=== PATIENT | female | born 1960 | race Caucasian/White ===

== ENCOUNTER 2016-12-26 17:44 | Emergency (ER) | payer MEDICAID, OTHER ==
[~2016-12-26] VITALS: Ht 162.6 cm; Wt 89.5 kg
[2016-12-26 18:09] VITALS: Ht 162.6 cm; Wt 89.5 kg
[2016-12-26] MEDS ORDERED: ALBUTEROL 0.083% (NEB) 2.5 MG/3 ML AMP NEB STA (20:49)
[2016-12-26] MEDS ORDERED: IPRATROPIUM (NEB) 0.5 MG/2.5 ML AMP NEB STA (20:49)
[2016-12-26] MEDS ORDERED: SOD CHLORIDE 0.9% 1,000 ML IV STA (20:49)
[2016-12-26] MEDS ORDERED: METHYLPREDNISOLONE 125 MG INJ IV STA (20:49)
[2016-12-26] MEDS ORDERED: DIPHENOXYLATE/ATROPINE TAB PO ONE (21:00)
[2016-12-26] MEDS ORDERED: BENZONATATE 100 MG CAP PO ONE (21:00)
[2016-12-26] MEDS ORDERED: NAPR220T30 PO (21:01)
[2016-12-26 21:32] LABS: ADD SCAN DIFF NO
[2016-12-26 21:35] LABS: BASOPHILS % 0.2 % (0.0-2.0); EOSINOPHILS # 0.1 10^3/ul (0.0-0.5); EOSINOPHILS % 2.4 % (0.0-7.0); HEMATOCRIT 41.6 % (37.0-47.0); HEMOGLOBIN 14.3 g/dl (12.0-16.0); MEAN CORPUSCULAR HEMOGLOBIN 30.8 pg (29.0-33.0); MEAN CORPUSCULAR HGB CONC 34.4 g/dl (32.0-37.0); MEAN CORPUSCULAR VOLUME 89.5 fl (82.0-101.0); MEAN PLATELET VOLUME 10.3 fl (7.4-10.4); MONOCYTE # 0.3 10^3/ul (0.3-0.9); NEUTROPHILS % 74.2 % (39.0-77.0); PLATELET COUNT 291 10^3/UL (140-415); RED BLOOD COUNT 4.65 10^6/ul (4.20-5.40); WHITE BLOOD COUNT 5.4 10^3/ul (4.8-10.8)
--- NOTE | 2016-12-26 21:42 | RADRPT ---
PROCEDURE: XR Chest. CLINICAL INDICATION: Chest pain. Cough TECHNIQUE: Portable AP semi erect view of the chest was obtained. COMPARISON: None. FINDINGS: The cardiomediastinal silhouette is within normal limits. The lungs are clear. There is no evidenc e for pleural effusion, pneumothorax or pulmonary vascular congestion. The osseous structures are i ntact with no evidence for acute abnormality. RPTAT:HJJR IMPRESSION: No evidence for acute intrathoracic pathology. Physician Drew Date Time Electronically viewed and signed by João Marquez Physician on 12/26/2016 21:41 JR/
[2016-12-26 21:48] LABS: ALBUMIN 4.2 g/dl (3.3-4.9); CHLORIDE 102 mmol/L (97-110); SODIUM 142 mmol/L (135-144)
[2016-12-26 21:49] LABS: POTASSIUM 3.3 mmol/L (3.5-5.1)
[2016-12-26 21:50] LABS: AMYLASE 66 U/L (11-123)
[2016-12-26 21:51] LABS: ALANINE AMINOTRANSFERASE 28 IU/L (13-69); ALBUMIN/GLOBULIN RATIO 1.13; ALKALINE PHOSPHATASE 89 IU/L (42-121); ANION GAP 19 (8-16); ASPARTATE AMINO TRANSFERASE 27 IU/L (15-46); BILIRUBIN,INDIRECT 0.4 mg/dl (0-1.1); BILIRUBIN,TOTAL 0.4 mg/dl (0.2-1.3); BLOOD UREA NITROGEN 15 mg/dl (7-20); CALCIUM 9.3 mg/dl (8.4-10.2); CARBON DIOXIDE 24 mmol/L (21-31); CREATININE 0.54 mg/dl (0.44-1.00); GLUCOSE 105 mg/dl (70-220); TOTAL PROTEIN 7.9 g/dl (6.1-8.1)
[2016-12-26] MEDS ORDERED: DICLOFENAC SODIUM 37.5 MG/ML VIAL IV STA (21:51)
--- NOTE | 2016-12-26 21:51 | ERD ---
ER Documentation Chief Complaint Date/Time DATE: 12/26/16 TIME: 21:43 Chief Complaint COUGH, DIARRHEA & AP WAS SEEN BY PCP LAST WK TOLD SHE HAD TO FLU HPI This is a very pleasant 56-year-old female with no past medical history that presents to the emergency department complaining of 7 days of a productive cough with whitish sputum. She was seen by her primary care physician several days ago and indicated that this was likely a viral etiology. The patient however indicates that she developed abdominal cramping 24 hours prior to arrival followed by multiple episodes of loose watery stools. She denies any recent travel or prolonged immobilization. She indicates the abdominal cramping is only present just prior to stooling and there is no blood present in her stool. She has had no fevers or shaking or chills. She denies any recent sick contacts. She has not taken any antibiotics. She indicates she has an allergy to codeine and therefore was given a cough syrup that did not improve her symptoms. Her cough is been persistent throughout the day and is not worse at night. She denies any dyspnea no shortness of breath. She is no chest pain or pressure that radiates to the neck arm back or jaw. She has had generalized myalgias but denies a rash. She denies a headache or neck pain ROS All systems reviewed and are negative except as per history of present illness. Medications Home Meds Reported Medications Naproxen* (Naproxen*) 220 Mg Tablet, 220 MG PO Y for PRN, TAB 12/26/16 Allergies Allergies: Coded Allergies: Penicillins (Verified Allergy, Unknown, SKIN RASHES, 12/26/16) codeine (Unverified Allergy, Unknown, PALPITATION, 12/26/16) PMhx/Soc Medical and Surgical Hx: pt denies Medical Hx, pt denies Surgical Hx Hx Alcohol Use: No Hx Substance Use: No Hx Tobacco Use: No Smoking Status: Never smoker Physical Exam Vitals Vital Signs Date Time Temp Pulse Resp B/P Pulse Ox O2 Delivery O2 Flow Rate FiO2 12/26/16 21:00 98.1 103 22 102/71 99 Room Air 12/26/16 18:09 99.5 140 22 124/60 98 Physical Exam Constitutional:Well-developed. Well-nourished. HEENT:Normocephalic. Atraumatic.Pupils were equal round reactive to light. Dry mucous membranes.No tonsillar exudates. Neck: No nuchal rigidity. No lymphadenopathy. No posterior cervical spine tenderness or step-offs. Respiratory: Not using accessory muscles of respiration.Lungs were clear to auscultation bilaterally. No rhonchi. No rales. Very slight wheezing bilaterally Cardiovascular: Regular rate regular rhythm.No murmurs. No rubs were appreciated.S1, S2 normal. Distal pulses are palpable 2+ bilaterally. GI: Abdomen was soft. Nontender. Non Distended. No tenderness of the left to the right lower quadrant. No tenderness specifically over McBurney's point. Psoas sign negative. Obturator sign negative and no pulsatile abdominal masses or bruits. No rebound. No guarding. Bowel sounds were present and normal. Muscle skeletal: Full range of motion of both the upper and lower extremities bilaterally.Normal muscle tone.No assymetrical calf tenderness or swelling. Skin: No petechia, no purpura. No lesions on the palms or the soles of the feet. No maculopapular rash. NEURO: Patient was alert, awake, orientated x3.No facial droop. Gait observed and normal with no ataxia.Speech had regular rate and rhythm. No focal neurological deficits. Results 24 hrs Current Medications Medications (Trade) Dose Ordered Sig/Sola Route PRN Reason Start Time Stop Time Status Last Admin Dose Admin Sodium Chloride (NS) 1,000 ml @ 1,000 mls/hr Q1H STAT IV 12/26/16 20:49 12/26/16 21:48 12/26/16 21:21 Albuterol (Proventil 0.083% (Neb)) 5 mg ONCE STAT NEB 12/26/16 20:49 12/26/16 20:52 DC Ipratropium [place] (Atrovent 0.02% (Neb)) 0.5 mg ONCE STAT NEB 12/26/16 20:49 12/26/16 20:52 DC Methylprednisolone Sodium Succinate (Solu-Medrol) 125 mg ONCE STAT IV 12/26/16 20:49 12/26/16 20:52 DC 12/26/16 21:21 Benzonatate (Tessalon) 200 mg ONCE ONCE PO 12/26/16 21:00 12/26/16 21:01 DC 12/26/16 21:21 Diphenoxylate HCl/ Atropine (Lomotil) 1 tab ONCE ONCE PO 12/26/16 21:00 12/26/16 21:01 DC 12/26/16 21:21 Procedures/MDM This patient presented to the emergency department with a nonproductive cough, generalized myalgia and diarrhea. The patient had a 1 view chest radiograph for and reviewed by myself and there is no evidence of pneumonia. The patient had clinical dehydration therefore was given a liter bolus of 0.9 normal saline. Given that the patient had new onset wheezing she did receive a nebulizer treatment of albuterol Atrovent and was given IV steroids. The patient was given intravenous toradol for analgesic control. I did feel the symptoms were likely result of a viral etiology however the patient was very adamant that she would request antibiotics at this time. Therefore she was given a dose of azithromycin was also given Tessalon Perls as an antitussive. 12 Lead EKG tracing ordered and reviewed by myself showed: Sinus tachycardia 134 bpm and no arrhythmia. AR interval normal. QRS duration shortened at 76 ms however I did feel this was sinus tachycardia versus supraventricular tachycardia No ST segment elevation No ST segment depression. No changes consistent with acute ischemia. The patient's tachycardia resolved after IV fluids hydration. The patient felt comfortable being discharged home at this time. The patient was discharged home in fair condition. They were instructed to return to the emergency department at any time if there was any worsening of their condition. The patient stated they would follow up with their PCP in the next 24-48 hours to initiate a suitable medication regimen under the care of their PCP as well as to allow their PCP to monitor any drug reactions. The patient was discharged home with prescriptions after they gave informed consent to the new medication. They were also fully informed by myself on the adverse effects and adverse drug interactions in order to provide adequate safeguards to prevent possible adverse reactions to medications. Departure Diagnosis: Primary Impression: Cough Additional Impressions: Upper respiratory infection, viral Diarrhea Diarrhea type: unspecified type Qualified Code: R19.7 - Diarrhea, unspecified type Condition: JEFERSON Cohen Dec 26, 2016 21:51
[2016-12-26 22:06] LABS: TROPONIN-I < 0.012 ng/ml (0.00-0.12)
[2016-12-26] MEDS ORDERED: AZIT500T5 PO (22:17)
[2016-12-26] MEDS ORDERED: BENZ100C70 PO (22:17)
[2016-12-26] MEDS ORDERED: POTASSIUM CHLORIDE (SR) 10 MEQ TAB PO ONE (22:30)
[2016-12-26 23:45] VITALS: BP 95/54; PULSE 116; RESP 19; TEMP 98.7
[2016-12-27] MEDS ORDERED: DIPH1TAB PO (22:54)
== END 2016-12-26 23:46 | disposition home or self-care (01) ==
LOC: E/R 17:44
DX: R05 Cough (principal); J06.9 Acute upper respiratory infection, unspecified; R19.7 Diarrhea, unspecified; R07.9 Chest pain, unspecified; R40.2252 Coma scale, best verbal response, oriented, at arrival to emergency department; R40.2142 Coma scale, eyes open, spontaneous, at arrival to emergency department; R40.2362 Coma scale, best motor response, obeys commands, at arrival to emergency department
CPT/HCPCS: 71010; 80053; 82150; 83690; 84484; 85025; 93005; 94640; 94664; 96374; 96375; J2930; J7030; Z7502; Z7610

== ENCOUNTER 2016-12-27 17:02 | Emergency (ER) | payer OTHER ==
[~2016-12-27] VITALS: Ht 157.5 cm; Wt 89.5 kg
[~2016-12-27 17:02] MED LIST: AZIT500T5 PO; BENZ100C70 PO; NAPR220T30 PO
[2016-12-27 17:16] VITALS: Ht 157.5 cm; Wt 89.5 kg
[2016-12-27] MEDS ORDERED: ONDANSETRON 4 MG INJ IV STA (18:35)
[2016-12-27] MEDS ORDERED: SOD CHLORIDE 0.9% 1,000 ML IV STA (18:35)
--- NOTE | 2016-12-27 18:43 | ERD ---
ER Documentation Chief Complaint Date/Time DATE: 12/27/16 TIME: 18:28 Chief Complaint DIARRHEA X 3 DAYS,VOMITING,EPIGASTRIC PAIN. HPI This pleasant 56-year-old female presents to the emergency department with 3 day history of diarrhea. Patient reports watery diarrhea approximately "60" times today, with abdominal cramping, epigastric cramping, and has to leave exam room to use the restroom during interview process. Patient states feeling dehydrated, patient states that she was seen and evaluated in emergency room here last night for a cough 7 present for the last 7 days days, abdominal cramping and multiple episodes of loose watery stools. Patient was treated with IV fluids, serology testing, respiratory treatments and and was discharged home with azithromycin. Patient has not been able to start azithromycin. Dropped off medication at pharmacy. She denies any recent travel or prolonged immobilization. Denies blood in her stool. She has had no fevers or shaking or chills. She denies any recent sick contacts. She has not taken any antibiotics in the last 3 months. Patient denies chest pain, shortness of breath, palpitations, or dizziness. ROS All systems reviewed and are negative except as per history of present illness. Medications Home Meds Active Scripts Diphenoxylate HCl/Atropine (Lomotil 2.5-0.025 mg Tablet) 1 Each Tablet, 1 TAB PO Q6H Y for DIARRHEA for 2 Days, #8 TAB Prov:SCOOTER HERZOG 12/27/16 Azithromycin* (Azithromycin*) 500 Mg Tablet, 500 MG PO DAILY for 5 Days, TAB Prov:JEFERSON GOLDSMITH 12/26/16 Benzonatate* (Tessalon Perle*) 100 Mg Capsule, 100 MG PO Q8H Y for COUGH, #30 CAP Prov:JEFERSON GOLDSMITH 12/26/16 Reported Medications Naproxen* (Naproxen*) 220 Mg Tablet, 220 MG PO Y for PRN, TAB 12/26/16 Allergies Allergies: Coded Allergies: Penicillins (Verified Allergy, Unknown, SKIN RASHES, 12/27/16) codeine (Unverified Allergy, Unknown, PALPITATION, 12/27/16) PMhx/Soc Medical and Surgical Hx: pt denies Medical Hx, pt denies Surgical Hx Hx Alcohol Use: No Hx Substance Use: No Hx Tobacco Use: No Physical Exam Vitals Vitals stable, triage notes reviewed Physical Exam Const: No acute distress Head: Atraumatic Eyes: Normal Conjunctiva PERRLA, EOMI ENT: Bilateral tympanic membranes translucent, positive light reflex, nasal mucosa moist, septum midline, oropharynx pink, moist, tongue midline, moist, uvula rises and falls with pronation. Neck: Full range of motion..~ No meningismus. Resp: Chest rise and fall symmetrically, clear to auscultation bilaterally, no rales wheezes or rhonchi no respiratory distress Cardio: Regular rate and rhythm, no murmurs S1/S2/no S3/S4. Abd: Soft generalized tenderness, psoas sign negative, no epigastric tenderness. Skin: No petechiae or rashes Back: No midline or flank tenderness Ext: Neur: Awake and alert Psych: Normal Mood and Affect Results 24 hrs Laboratory Tests Test 12/27/16 20:45 Urine Color LT. YELLOW Urine Clarity HAZY Urine pH 6.0 Urine Specific [place] 1.020 Urine Ketones NEGATIVE Urine Nitrite NEGATIVE Urine Bilirubin NEGATIVE Urine Urobilinogen 0.2 E.U./dL Urine Leukocyte Esterase NEGATIVE Urine Microscopic RBC 0-2/HPF Urine Microscopic WBC 2-5/HPF Urine Squamous Epithelial Cells MANY Urine Bacteria FEW Urine Hemoglobin TRACE Urine Glucose NEGATIVE% Urine Total Protein NEGATIVE Current Medications Medications (Trade) Dose Ordered Sig/Sola Route PRN Reason Start Time Stop Time Status Last Admin Dose Admin Sodium Chloride (NS) 1,000 ml @ 1,000 mls/hr Q1H STAT IV 12/27/16 18:35 12/27/16 19:34 DC 12/27/16 18:59 Ondansetron HCl (Zofran Inj) 4 mg ONCE STAT IV 12/27/16 18:35 12/27/16 18:50 DC 12/27/16 18:59 Loperamide HCl (Imodium Cap) 2 mg ONCE ONCE PO 12/27/16 19:00 12/27/16 19:01 DC 12/27/16 18:59 Diphenoxylate HCl/ Atropine (Lomotil) 1 tab ONCE ONCE PO 12/27/16 20:00 12/27/16 20:01 DC 12/27/16 20:17 Interpretation text Urinalysis negative for evidence of leukocytosis, microscopic hematuria, or nitrates, no evidence of infection Procedures/MDM This 56-year-old female presents to emergency department today with diarrhea and abdominal pain. Patient reports that she has had more than 60 watery diarrhea stools today, she denies any recent travel patient reports that she was seen yesterday here in the emergency room for cough, prescribed azithromycin which she has not started yet. Patient is alert, mucous membranes are moist, vitals are stable. C. difficile, pancreatitis, appendicitis, cholecystitis, not likely. Patient likely has a viral gastroenteritis, will be treated in emergency department with a liter of normal saline, given Imodium which was ineffective for slowing down watery diarrhea, patient given Lomotil and Zofran with good results. Patient still reports diarrhea while in emergency room, teaching provided that diarrhea will likely continue for a few days until toxins leave her body, stressed the importance of not stopping diarrhea altogether, instructed to to return to emergency room for chest pain, shortness of breath, weakness, dizziness or diarrhea not subsiding after additional 24 hours. Patient will be given a prescription for low Lomotil use of support treatment to maintain hydration, brat diet suggested. I feel the patient is stable for discharge with outpatient management by primary care physician. I have discussed results, examination findings, the treatment plan with the patient and family present prior to discharge. Indications for emergent reevaluation, side effects of medication were also discussed. All questions were answered. Patient verbalizes understanding and agrees with plan of care. Departure Diagnosis: Primary Impression: Diarrhea Diarrhea type: unspecified type Qualified Code: R19.7 - Diarrhea, unspecified type Condition: Good Patient Instructions: Diarrhea, Viral (Infant/Toddler), Treating Diarrhea Additional Instructions: Thank you for for coming to [facility] for your care today. Please ask your nurse or provider if you have questions about your care today and do not leave until all your questions have been answered. Please use any medications given as directed and follow-up with your doctor (or the doctor you were referred to) in the next 2-3 days. If you do not have a primary care doctor you may follow up at the [facility] (listed below). You may also use motrin and tylenol as needed for fever and/or pain unless instructed otherwise by your provider or nurse. Indications for more urgent follow-up have been discussed, but you may return to the Emergency Department at ANY time for any worrisome or worsening symptoms. If you have abdominal pain, please know that no test or exam you received is perfect and you should follow up within 8 hours for continued pain. If you had any imaging studies today, such as an X-Ray or CT Scan, these studies will be reviewed later by a radiologist. You will be called if there are important findings that were not identified today, so make sure the contact information you provided at registration is correct. If you received any narcotic pain control medicine today, such as Vicodin, Morphine or Dilaudid, your coordination and judgment may be affected for a number of hours. Please do not drive or operate heavy machinery, and you may want someone to assist you at home. If you were given a prescription for narcotic medication, be aware that it is very addictive- use sparingly and only if necessary. SCOOTER HERZOG Dec 27, 2016 18:38
[2016-12-27] MEDS ORDERED: LOPERAMIDE 2 MG CAP PO ONE (19:00)
[2016-12-27] MEDS ORDERED: DIPHENOXYLATE/ATROPINE TAB PO ONE (20:00)
[2016-12-27 21:03] LABS: ADD UMIC YES; URINE BILIRUBIN (Dip) NEGATIVE (NEGATIVE); URINE BLOOD (Dip) TRACE (NEGATIVE); URINE COLOR LT. YELLOW (YELLOW); URINE GLUCOSE (Dip) NEGATIVE (NEGATIVE); URINE KETONES (Dip) NEGATIVE (NEGATIVE); URINE LEUKOCYTE ESTERASE (Dip) NEGATIVE (NEGATIVE); URINE NITRITE (Dip) NEGATIVE (NEGATIVE); URINE TOTAL PROTEIN (Dip) NEGATIVE (NEGATIVE); URINE UROBILINOGEN (Dip) 0.2 E.U./dL (0.1-1.0)
[2016-12-27 21:26] LABS: BACTERIA,URINE FEW; SQUAMOUS EPITHELIAL CELL,UR MANY; URINE RBCS 0-2 /HPF (0)
[2016-12-27] MEDS ORDERED: DIPH1TAB PO (22:54)
[2016-12-27 23:04] VITALS: BP 123/78; PULSE 69; RESP 16; TEMP 97.5
== END 2016-12-27 23:12 | disposition home or self-care (01) ==
LOC: FTE 17:02
DX: R19.7 Diarrhea, unspecified (principal); R11.10 Vomiting, unspecified
CPT/HCPCS: 81001; J2405; J7030; Z7610; 36415; 81003; 96374